=== PATIENT | male | born 1945 | race Caucasian/White ===

== ENCOUNTER 2020-03-04 15:37 | Emergency (ER) | payer OTHER ==
[~2020-03-04] VITALS: Ht 188 cm; Wt 97.5 kg
[2020-03-04] MEDS ORDERED: ARTHRITIS (15:51)
[2020-03-04] MEDS ORDERED: LEVO-T25 MCG PO (15:51)
[2020-03-04 17:24] LABS: ABSOLUTE BASOPHILS 0.1 thou/uL (0.0-0.2); ABSOLUTE LYMPHOCYTES 2.2 thou/uL (0.8-5.3); ABSOLUTE MONOCYTES 0.7 thou/uL (0.0-1.2); ABSOLUTE NEUTROPHILS 9.4 thou/uL (1.6-8.1); BASOPHILS 0.5 %; EOSINOPHILS 0.3 %; HEMATOCRIT 42.9 % (42.0-52.0); HEMOGLOBIN 14.2 gm/dL (14.0-18.0); LYMPHOCYTES 17.8 %; MCH 30.5 pg (26.0-34.0); MCHC 33.1 g/dL (28.0-37.0); MCV 92.3 fL (80.0-100.0); MONOCYTES 5.9 %; MPV 7.6 fl. (7.2-11.1); NUCLEATED RBCS 0 /100WBC; PLATELET COUNT* 261 thou/uL (150-400); POLYS 75.5 %; RBC 4.64 mil/uL (4.50-6.00); RDW-CV 15.3 % (10.5-14.5); WBC 12.4 thou/uL (4.0-11.0)
[2020-03-04 17:25] VITALS: BP 160/92
[2020-03-04 17:38] LABS: CALCIUM 8.4 mg/dL (8.5-10.1); CREATININE 1.2 mg/dL (0.6-1.3); POTASSIUM 4.7 mmol/L (3.5-5.1)
[2020-03-04 17:42] LABS: ALBUMIN 3.9 g/dL (3.4-5.0); TOTAL BILIRUBIN 0.4 mg/dL (<0.1-1.0); TOTAL PROTEIN 7.5 g/dL (6.4-8.2)
== END 2020-03-04 17:25 | disposition short-term general hospital (02) ==
LOC: M.ERS 15:37
PROVIDERS: Family Medicine
DX: S12.691A Other nondisplaced fracture of seventh cervical vertebra, initial encounter for closed fracture (principal); S00.33XA Contusion of nose, initial encounter; S00.01XA Abrasion of scalp, initial encounter; M25.521 Pain in right elbow; M25.531 Pain in right wrist; M79.641 Pain in right hand; R60.9 Edema, unspecified; M19.90 Unspecified osteoarthritis, unspecified site; Z85.46 Personal history of malignant neoplasm of prostate; W11.XXXA Fall on and from ladder, initial encounter; Y93.89 Activity, other specified; Y92.89 Other specified places as the place of occurrence of the external cause; Y99.8 Other external cause status